=== PATIENT | female | born 1955 | race Caucasian/White ===

== ENCOUNTER 2024-05-26 09:38 | Outpatient (CLI) | payer MEDICARE, BC ==
[2024-05-26] MEDS ORDERED: GADOTERATE MEGLUMINE 7.5 MMOL/15 ML VIAL IV ONE (12:49)
== END 2024-05-26 23:59 | disposition home or self-care (01) ==
LOC: MRI02 09:38
PROVIDERS: ATTEND Internal Medicine Rheumatology
DX: M70.72 Other bursitis of hip, left hip (principal); M33.10 Other dermatomyositis, organ involvement unspecified
CPT/HCPCS: 73720; A9575